=== PATIENT | female | born 1995 | race Caucasian/White ===

== ENCOUNTER 2025-03-22 03:56 | Emergency (ER) | payer MEDICAID ==
[~2025-03-22] VITALS: Ht 149.9 cm; Wt 72.3 kg
[2025-03-22 04:07] VITALS: TEMP 36.9; O2SAT 99
[2025-03-22] MEDS ORDERED: CYCLOBENZAPRINE 10MG TABLET PO ONE (04:30)
[2025-03-22] MEDS ORDERED: IBUPROFEN 600MG TABLET PO ONE (04:30)
[2025-03-22] MEDS ORDERED: IBUP-1455 MT (05:02)
[2025-03-22] MEDS ORDERED: CYCL10TA21 MT (05:02)
[2025-03-22 05:28] VITALS: BP 135/86; PULSE 65; RESP 18; O2SAT 100
== END 2025-03-22 05:29 | disposition home or self-care (01) ==
LOC: ER 03:56
DX: S80.02XA Contusion of left knee, initial encounter (principal); Z88.0 Allergy status to penicillin; Z90.49 Acquired absence of other specified parts of digestive tract; W19.XXXA Unspecified fall, initial encounter; Y93.01 Activity, walking, marching and hiking; Y92.410 Unspecified street and highway as the place of occurrence of the external cause; Y99.8 Other external cause status
CPT/HCPCS: 73562; 29505; 99283; Z7610